=== PATIENT | male | born 1985 ===

== ENCOUNTER 2016-09-14 08:45 | Emergency (ER) | payer BC ==
[2016-09-14 08:52] VITALS: BP 127/74; PULSE 86; TEMP 98; O2SAT 98; BMI 28.2
[2016-09-14 09:07] VITALS: RESP 20
--- NOTE | 2016-09-14 09:54 | ED PDOC ---
HPI: Back Time Seen by Provider: 09/14/16 09:48 Chief Complaint (Nursing): Back Pain Chief Complaint (Provider): Back pain History Per: Patient History/Exam Limitations: no limitations Onset/Duration Of Symptoms: Days (4) Current Symptoms Are (Timing): Still Present Quality Of Discomfort: "Pain" Severity: Moderate Pain Scale Rating Of: 6 Previous Symptoms: Back Pain Associated Symptoms: None Exacerbating Factor(s): Movement, Sitting Additional Complaint(s): 31 yo M with history of chronic lower back pain not on meds presents to ED with worsening back pain since Wednesday (4 days ago) that radiates down left lower leg. Patient has been using THC oil for relief and one 1/2 tab of unknown dosage of ibuprofen last night. Patient denies trauma, fever, chills, hematuria , urinary problems, weakness, pelvic numbness, or changes in bowel habits. No other complaints at this time. Patient denies seeing a provider for lower back pain. 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 Past Medical History Reviewed: Historical Data, Nursing Documentation, Vital Signs Vital Signs: Last Vital Signs Temp 98 F 09/14/16 09:05 Pulse 86 09/14/16 09:05 Resp 20 09/14/16 09:05 BP 127/74 09/14/16 09:05 Pulse Ox 98 09/14/16 09:05 - Medical History PMH: Back Problems - Family History Family History: States: No Known Family Hx - Home Medications Home Medications: Ambulatory Orders Medication Instructions Recorded Cyclobenzaprine [Flexeril] 5 mg PO TID #9 tab 09/14/16 Naproxen [Naprosyn] 500 mg PO BID #20 tablet 09/14/16 - Allergies Allergies/Adverse Reactions: Allergies Allergy/AdvReac Type Severity Reaction Status Date / Time No Known Allergies Allergy Verified 09/14/16 09:05 Review of Systems ROS Statement: Except As Marked, All Systems Reviewed And Found Negative Musculoskeletal: Positive for: Back Pain Physical Exam - Reviewed Nursing Documentation Reviewed: Yes Vital Signs Reviewed: Yes - Physical Exam Appears: Positive for: Well, No Acute Distress Head Exam: Positive for: ATRAUMATIC, NORMAL INSPECTION, NORMOCEPHALIC Skin: Positive for: Normal Color, Warm, Dry Eye Exam: Positive for: Normal appearance, EOMI Neck: Positive for: Normal Cardiovascular/Chest: Positive for: Regular Rate, Rhythm Respiratory: Positive for: Normal Breath Sounds Gastrointestinal/Abdominal: Positive for: Normal Exam, Bowel Sounds, Soft. Negative for: Tenderness Back: Positive for: Normal Inspection, Decreased ROM (bending limited to 30 degrees), Other (left paraspinal muscle tenderness to palpation, straight leg test positive of left side). Negative for: L CVA Tenderness, R CVA Tenderness, Vertebral Tenderness Extremity: Positive for: Normal ROM DTR - Knee (R): 2+ DTR - Knee (L): 2+ DTR - Ankle (R): 2+ DTR - Ankle (L): 2+ Neurologic/Psych: Positive for: Alert, piecer II-XII, Oriented, Gait (mild limp due to pain). Negative for: Motor/Sensory Deficits - ECG O2 Sat by Pulse Oximetry: 98 Pulse Ox Interpretation: Normal - Progress ED Course And Treament: Time: 0945 Assessment: 31 yo M with chronic left lower back pain that worsened x 4 days with radiation of left lower leg. DDx includes, but not limited to, lumbar strain vs herniated disc vs fracture vs spinal stenosis Plan: Urine Dip Stick Ibuprofen 600mg x 1 Lumbar spine X ray Reassess Time: 1120 Improving though still with pain, Flexeril 5mg x 1 given Xrays reviewed, lumbar straightening noted Patient informed of diagnosis, need for follow up, and rx given Naproxen and Flexerial Rx given. Patient to follow up with PCP in 2-3 days Re-evaluation Time: 11:20 Condition: Improving,but remains with symptoms Disposition - Clinical Impression Clinical Impression: Lumbar strain - Patient ED Disposition Is Patient to be Admitted: No Counseled Patient/Family Regarding: Studies Performed, Diagnosis, Need For Followup, Rx Given - Disposition Disposition: Routine/Home Disposition Time: 11:10 Condition: STABLE Prescriptions: Cyclobenzaprine [Flexeril] 5 mg PO TID #9 tab Naproxen [Naprosyn] 500 mg PO BID #20 tablet Instructions: Back Pain (ED) Print Language: KOSOVAN
--- NOTE | 2016-09-14 14:31 | RAD ---
PROCEDURE: Radiographs of the Lumbar Spine. HISTORY: low back pain COMPARISON: No prior. FINDINGS: BONES: Normal alignment. No listhesis. No fracture. DISC SPACES: Disc space narrowing at L5-S1. OTHER FINDINGS: None. IMPRESSION: No fracture.
== END 2016-09-14 11:49 | disposition home or self-care (01) ==
LOC: H.ER 08:45
DX: M54.5 Low back pain (principal)